=== PATIENT | male | born 1975 | race Caucasian/White ===

== ENCOUNTER 2021-01-21 20:57 | Emergency (ER) | payer OTHER ==
[~2021-01-21] VITALS: Ht 167.6 cm; Wt 92.5 kg
[2021-01-21 20:58] VITALS: BP_SYST 151
[2021-01-21] MEDS ORDERED: EPINEPHrine 1 MG/ML VIAL IM ONE (21:15)
[2021-01-21] MEDS ORDERED: methylPREDNISolone SOD SUCC/PF 62.5 MG/ML VIAL IVP ONE (21:15)
[2021-01-21] MEDS ORDERED: FAMOTIDINE PF 20 MG/2 ML VIAL IVP ONE (21:15)
[2021-01-21] MEDS ORDERED: EPINEPHrine 1 MG/ML AMP ONE (21:41)
[2021-01-21] MEDS ORDERED: EPIN0.3P3 IM (22:45)
[2021-01-21] MEDS ORDERED: DIPH25CA83 PO (22:45)
[2021-01-21] MEDS ORDERED: PRED20TA PO (22:45)
[2021-01-21 22:58] VITALS: BP_SYST 126
== END 2021-01-21 22:58 | disposition home or self-care (01) ==
LOC: SED 20:57
DX: T78.2XXA Anaphylactic shock, unspecified, initial encounter (principal); Z91.013 Allergy to seafood; Z79.899 Other long term (current) drug therapy
CPT/HCPCS: 96372; 96374; 96375; 99285; J0171; J2930; J3490; 99284